=== PATIENT | male | born 1950 | race Caucasian/White ===

== ENCOUNTER 2019-12-09 16:03 | Outpatient (RCR) | payer MEDICARE | END 2019-12-10 | LOC: PT 16:03 | PROVIDERS: ATTEND Orthopaedic Surgery | DX: M54.5 Low back pain (principal); M99.73 Connective tissue and disc stenosis of intervertebral foramina of lumbar region; M62.81 Muscle weakness (generalized); M53.86 Other specified dorsopathies, lumbar region ==

== ENCOUNTER 2020-01-02 12:59 | Outpatient (RCR) | payer MEDICARE | END 2020-01-10 | LOC: PT 12:59 | PROVIDERS: ATTEND Orthopaedic Surgery | DX: M54.5 Low back pain (principal); M99.73 Connective tissue and disc stenosis of intervertebral foramina of lumbar region; M62.81 Muscle weakness (generalized); M53.86 Other specified dorsopathies, lumbar region ==

== ENCOUNTER → 2021-03-24 | Outpatient (CLI) | payer OTHER | LOC: CT 15:48 | PROVIDERS: ATTEND Nurse Practitioner Gerontology | DX: R91.8 Other nonspecific abnormal finding of lung field (principal) | CPT/HCPCS: 71250 ==